=== PATIENT | female | born 1995 | race Caucasian/White ===

== ENCOUNTER 2019-06-03 13:09 | Emergency (ER) | payer BC, MEDICAID ==
[~2019-06-03] VITALS: Ht 167.6 cm; Wt 59.8 kg
[2019-06-03 14:06] LABS: URINE HCG NEGATIVE (NEG)
[2019-06-03 14:09] LABS: CLARITY,URINE CLEAR (Clear); COLOR,URINE YELLOW (Yellow); GLUCOSE, URINE NEGATIVE (Neg); KETONES,URINE 15 mg/dl (Neg); LEUKOCYTE ESTERASE ,URINE NEGATIVE (Neg); NITRITES, URINE NEGATIVE (Neg); OCCULT BLOOD,URINE NEGATIVE (Neg); PH,URINE 5.5 (4.8-8.0); PROTEIN,URINE NEGATIVE (Neg); UROBILINOGEN,URINE 0.2 E.U/dL (0.2-1.0)
[2019-06-03 14:11] LABS: UA COLLECTION TYPE CLN CATCH MIDSTREAM
[2019-06-03 14:22] LABS: URINE AMPHETAMINE SCREEN NEGATIVE (Neg); URINE BARBITUATE SCREEN NEGATIVE (Neg); URINE BENZODIAZEPINES SCREEN NEGATIVE (Neg); URINE CANNABINOID SCREEN POSITIVE (Neg); URINE COCAINE SCREEN NEGATIVE (Neg); URINE METHADONE SCREEN NEGATIVE (Neg); URINE OPIATE SCREEN NEGATIVE (Neg); URINE PHENCYCLIDINE SCREEN NEGATIVE (Neg)
[2019-06-03 14:23] LABS: BASOPHILS # (AUTO) 0.1 X10'3 (0-0.2); BASOPHILS % (AUTO) 0.6 % (0-1); EOSINOPHILS # (AUTO) 0.1 X10'3 (0-0.9); EOSINOPHILS % (AUTO) 0.9 % (0-6); HEMATOCRIT 39.9 % (35.0-45.0); HEMOGLOBIN 13.3 g/dl (12.0-16.0); LYMPHOCYTES # (AUTO) 1.6 X10'3 (1.1-4.8); LYMPHOCYTES % (AUTO) 18.5 % (21-51); MEAN CORPUSCULAR HEMOGLOBIN 27.5 PG (27.0-31.0); MEAN CORPUSCULAR HGB CONC 33.4 g/dL (33.0-36.5); MEAN CORPUSCULAR VOLUME 82.3 FL (78-98); MEAN PLATELET VOLUME 7.8 FL (7.4-10.4); MONOCYTES # (AUTO) 0.3 X10'3 (0-0.9); MONOCYTES % (AUTO) 4.1 % (2-12); NEUTROPHILS # (AUTO) 6.3 X10'3 (1.8-7.7); NEUTROPHILS % (AUTO) 75.9 % (42-75); PLATELET COUNT 289 X10'3 (140-440); RED BLOOD COUNT 4.85 X10'6 (4.20-5.60); WHITE BLOOD COUNT 8.4 X10'3 (4.5-11.0)
--- NOTE | 2019-06-03 14:27 | NUR ---
Explained the process of being evaluated to the pt. Pt's S.O. is at bedside at this time. Both verbalize understanding.
[2019-06-03 14:35] LABS: ALANINE AMINOTRANSFERASE 15 U/L (12-78); ALBUMIN 3.8 G/DL (3.4-5.0); ALBUMIN/GLOBULIN RATIO 1.2 (1.1-1.5); ANION GAP 7 (8-16); ASPARTATE AMINO TRANSFERASE 12 U/L (10-37); BILIRUBIN,TOTAL 0.5 MG/DL (0.1-1.0); BLOOD UREA NITROGEN 8 MG/DL (7-18); BUN/CREATININE RATIO 9.3 (6.6-38.0); CALCIUM 8.8 MG/DL (8.5-10.1); CHLORIDE 104 MMOL/L (99-107); CREATININE 0.86 MG/DL (0.40-0.90); GLUCOSE 167 MG/DL (70-104); POTASSIUM 3.6 MMOL/L (3.5-5.1); SODIUM 139 MMOL/L (135-145); TOTAL CARBON DIOXIDE 28.3 MMOL/L (24-32); TOTAL PROTEIN 7.1 G/DL (6.4-8.2); eGFR 82 ML/MIN
[2019-06-03 14:36] LABS: ALKALINE PHOSPHATASE 39 IU/L (46-116)
[2019-06-03 14:46] LABS: ETHANOL < 0.010 GM/DL (0.0-0.010)
--- NOTE | 2019-06-03 18:31 | NUR ---
UNABLE TO LOCATE [id number] OR [id number] FORM IN BINDER.
--- NOTE | 2019-06-03 20:50 | NUR ---
Pt. ambulated over from main ER accompanied by her boyfriend and RN. Pt. assessed by this real estate underwriter and 1:1 completed at bedside, she currently denies any S/I at this time or plan. However, pt. reports that she has struggled with depression and anxiety her whole life and has never been prescribed any medications for this. Pt. does see a therapist. She currently lives with her boyfriend, and reports that he is very supportive of her. Pt. states, "I had a very bad day at work yesterday and it kind of just triggered everything." Pt. laying in bed at this time, rr even and unlabored.
[2019-06-03] MEDS ORDERED: hydrOXYzine 25 MG tablet PO ONE (21:05)
--- NOTE | 2019-06-03 21:12 | NUR ---
Pt. c/o anxiety and insomnia, boyfried at bedsid, pt. reports increased anxiety r/t to his departure. Obtained order from for Atrax X1, will monitor.
--- NOTE | 2019-06-03 22:00 | NUR ---
Pt. sleeping at this time, appears to be resting comfortably.
[2019-06-03] MEDS ORDERED: MESA4ENE4 RC (22:36)
[2019-06-03] MEDS ORDERED: MESA1.2T3 PO (22:36)
--- NOTE | 2019-06-03 23:00 | NUR ---
Pt. up to use the BR, able to ambulate independently without difficulty. She reports that she would like to wait until tomorrow night for administration of HS rectal medication, will endorse to AM shift.
--- NOTE | 2019-06-04 00:29 | NUR ---
Pt. continues to sleep at this time, laying on left side, rr even and unlabored.
--- NOTE | 2019-06-04 02:30 | NUR ---
Pt. continues to sleep, laying on rt. side, rr even and unlabored.
--- NOTE | 2019-06-04 04:30 | NUR ---
Pt. continues to sleep, laying on her rt side at this time.
--- NOTE | 2019-06-04 06:03 | NUR ---
Pt. sleeping at this time, appears to be resting comfortably, will monitor.
[2019-06-04] MEDS ORDERED: mesalamine 1.2gm ER tablet PO SCH (08:00)
--- NOTE | 2019-06-04 08:22 | NUR ---
pt is awake eating breakfast took morning meds father and boyfriend at bed sided
[2019-06-04] MEDS ORDERED: clonazePAM 0.5mg tablet PO PRN (08:30)
--- NOTE | 2019-06-04 09:27 | NUR ---
pt in bed resting visiters at bed side
--- NOTE | 2019-06-04 11:22 | NUR ---
primary RN was sent on a break. pt in bed with visitors at the bedside talking
--- NOTE | 2019-06-04 11:51 | NUR ---
[facility] in evaluating pt
[2019-06-04] MEDS ORDERED: MESALAMINE 4 GM/60 ML RC SCH (21:00)
== END 2019-06-04 12:56 | disposition home or self-care (01) ==
LOC: ER 13:10
DX: F32.9 Major depressive disorder, single episode, unspecified (principal); R45.851 Suicidal ideations
CPT/HCPCS: 36415; 80053; 80305; 80320; 81003; 81025; 84443; 85025; 99284; Z7610